=== PATIENT | male | born 1960 | race Caucasian/White ===

== ENCOUNTER 2016-07-28 14:35 | Emergency (ER) | payer BC ==
[2016-07-28 15:02] VITALS: BP 151/97
--- NOTE | 2016-07-28 15:34 | EDM.PDOC ---
ED HPI GENERAL MEDICAL PROBLEM - General Chief Complaint: Skin Complaint Stated Complaint: TICK EMBEDDED ON BACK SHOULDER BLADE Time Seen by Provider: 07/28/16 14:58 Source of Information: Reports: Patient History Limitations: Reports: No Limitations - History of Present Illness INITIAL COMMENTS - FREE TEXT/NARRATIVE: 55-year-old male presents for evaluation and treatment of a possible tick embedded into his right shoulder. Patient first noticed a lump to his right shoulder blade about 1 week ago. He states that several weeks ago he had a tick to the right shoulder which he was able to remove easily. He has not appreciated any rashes. He denies any fevers, nausea or vomiting. Patient states he has been using vaseline and Neosporin to the area. Location: Reports: Back - Related Data Allergies Allergy/AdvReac Type Severity Reaction Status Date / Time No Known Allergies Allergy Verified 07/28/16 15:02 Home Meds: Home Meds . [No Known Home Meds] 07/28/16 [History] Past Medical History - Past Health History Medical/Surgical History: Denies Medical/Surgical History Social & Family History - Family History Family Medical History: Noncontributory - Tobacco Use Smoking Status *Q: Never Smoker Second Hand Smoke Exposure: No - Caffeine Use Caffeine Use: Reports: Coffee - Recreational Drug Use Recreational Drug Use: No ED ROS GENERAL - Review of Systems Review Of Systems: See Below Constitutional: Reports: Fever GI/Abdominal: Denies: Nausea, Vomiting Skin: Reports: Lumps (right shoulder blade). Denies: Rash ED EXAM, SKIN/RASH Exam: See Below Exam Limited By: No Limitations General Appearance: Alert, WD/WN, No Apparent Distress Respiratory/Chest: No Respiratory Distress, Lungs Clear, Normal Breath Sounds Cardiovascular: Normal Peripheral Pulses, Regular Rate, Rhythm, No Murmur Back Exam: Normal Inspection. No: Paraspinal Tenderness, Vertebral Tenderness Neurological: Alert, Oriented, Normal Cognition Skin: Warm, Dry, Normal Color, Other (patient has a large either lipoma or cyst to the right posterior shoulder about 15cm in diameter; patient also has a 2cm in diameter scabbed area with small area or surrounding erythema; patient reports the area of concern is the lipoma) Location, Skin: Back Course - Vital Signs Last Recorded V/S: Last Vital Signs Temp 36.7 C 07/28/16 14:56 Pulse 74 07/28/16 14:56 Resp 18 07/28/16 14:56 BP 151/97 H 07/28/16 14:56 Pulse Ox 99 07/28/16 14:56 Departure - Departure Time of Disposition: 15:30 Disposition: Home, Self-Care 01 Condition: Good Clinical Impression: Lipoma - Discharge Information Referrals: PCP,None [Primary Care Provider] - Mike Valente MD [Physician] - Forms: ED Department Discharge Additional Instructions: Follow-up with surgery if you would like the lipoma removed. Recommend Dr. Valente. Call [phone] to schedule with him. You have either a lipoma or possibly a cyst on your back, both of these are benign and are unrelated to the tick bites. Please return to the ER should your symptoms change or worsen.
== END 2016-07-28 15:50 | disposition home or self-care (01) ==
LOC: JD.ED 14:35
DX: D17.1 Benign lipomatous neoplasm of skin and subcutaneous tissue of trunk (principal)
CPT/HCPCS: 99282; 99283

== ENCOUNTER 2018-04-29 13:09 | Emergency (ER) | payer OTHER, BC ==
[2018-04-29] MEDS ORDERED: HYDROmorphone 1 MG/ML Syringe IVPUSH ONE (13:16)
[2018-04-29] MEDS ORDERED: Ondansetron 4 MG/2 ML SDV IVPUSH ONE (13:17)
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
[2018-04-29] MEDS ORDERED: Sodium Chloride 0.9% 1,000 ML IV SCH (13:30)
--- NOTE | 2018-04-29 14:10 | CR ---
Right foot: Four views of the right foot were obtained. Comparison: No prior foot exam. Joint spaces are preserved. Incidental calcaneal spur is again noted. No acute fracture, dislocation or other bony abnormality is seen. Impression: 1. Small calcaneal spur is again noted. 2. Nothing acute is seen on right foot exam. Diagnostic code #2
--- NOTE | 2018-04-29 14:10 | CT ---
Head CT Technique: Multiple axial sections through the brain were obtained. Intravenous contrast was not utilized. Comparison: No previous intracranial imaging. Findings: Ventricles along with basal cisterns and sulci over the convexities are within normal limits for the patient's age. No abnormal parenchymal densities are seen. No evidence of intracranial hemorrhage. No midline shift or mass effect is seen. Bone window settings were reviewed which show no acute calvarial abnormality. Visualized sinuses show small rounded soft tissue densities within both maxillary sinuses compatible with incidental retention cyst. Impression: 1. Incidental sinus findings. No acute intracranial abnormality is seen. No skull fracture is identified. Diagnostic code #2
--- NOTE | 2018-04-29 14:10 | CT ---
CT cervical spine Technique: Multiple axial sections through the cervical spine were obtained from above C1 inferiorly to the bottom of T2. Reconstructed coronal and sagittal images were reviewed. Comparison: No prior cervical spine imaging. Findings: Mild scattered degenerative change is noted within the apophyseal joints. Moderate disc space narrowing is noted at C4-C5 with slight posterior osteophytes. Mild disc space narrowing is noted at C5-C6 and C6-C7. Anterior osteophytes are noted at these 3 levels. Mild bilateral neural foraminal stenosis is noted at C4-C5 on both sides. Other neural foramina are patent. No bony central canal stenosis is seen. Degenerative spurring is noted within the uncovertebral joints at C4-C5. No cervical spine fracture is seen. No abnormal subluxation is seen. Incidental air-filled cysts are noted within the inferior endplate of C6 which are degenerative in etiology. Impression: 1. Mild degenerative change as noted above. 2. Nothing acute is appreciated on CT study of the cervical spine. Diagnostic code #2
--- NOTE | 2018-04-29 14:10 | CR ---
Right ankle: Four views of the right ankle were obtained. Comparison: No prior ankle study. Small plantar spur is seen. Well-corticated calcification is noted off the medial talus compatible with old injury. Ankle mortise is symmetric. No acute fracture, dislocation or other bony abnormalities are seen. Impression: 1. Incidental findings as noted above. Nothing acute is appreciated on right ankle exam. Diagnostic code #2
[2018-04-29] MEDS ORDERED: Diphtheria,Pertussis(Acell),Tetanus Vaccine 0.5 ML Syringe IM ONE (14:24)
[2018-04-29 14:34] VITALS: BP 150/88
== END 2018-04-29 15:00 | disposition home or self-care (01) ==
LOC: JD.ED 13:09
DX: S61.411A Laceration without foreign body of right hand, initial encounter (principal); S13.9XXA Sprain of joints and ligaments of unspecified parts of neck, initial encounter; S93.411A Sprain of calcaneofibular ligament of right ankle, initial encounter; Z23 Encounter for immunization; V89.2XXA Person injured in unspecified motor-vehicle accident, traffic, initial encounter
CPT/HCPCS: 36415; 70450; 72125; 73610; 73630; 80053; 81001; 85007; 85027; 90471; 90700; 96374; 96375; 99285; J1170; J2405; J7040; 99284

== ENCOUNTER 2018-10-04 20:26 | Emergency (ER) | payer BC ==
[2018-10-04 20:56] VITALS: BP 162/81
[2018-10-04] MEDS ORDERED: predniSONE 20 MG Tab PO ONE (21:32)
--- NOTE | 2018-10-04 21:40 | EDM.PDOC ---
ED HPI GENERAL MEDICAL PROBLEM - General Chief Complaint: Bite:Animal, Insect Stated Complaint: LEFT HAND STUNG BY A HORNET Time Seen by Provider: 10/04/18 20:59 Source of Information: Reports: Patient, RN Notes Reviewed History Limitations: Reports: No Limitations - History of Present Illness INITIAL COMMENTS - FREE TEXT/NARRATIVE: Patient is a 57-year-old male who presents to the ED for evaluation of a hornet sting. Patient notes that he was stung by this hornet at a roughly 6:30 AM this morning. The patient noticed that he still had a swollen hand throughout the day, this got better in the afternoon but he develop more swelling later into the day. Patient also appreciated some more swelling up into the forearm as well. The patient is not having any pain to the area. The patient did take 2 Benadryl about a half hour before arrival to the ER, and did take some Advil earlier this morning. The patient does have visible swelling in his left hand and fingers. He notes that the hornet got him in the anatomical snuffbox area. - Related Data Allergies Allergy/AdvReac Type Severity Reaction Status Date / Time No Known Allergies Allergy Verified 04/29/18 13:23 Home Meds: Home Meds predniSONE [Deltasone] 20 mg PO ASDIRECTED #8 tablet 10/04/18 [Rx] Past Medical History - Past Health History Medical/Surgical History: Denies Medical/Surgical History HEENT History: Reports: Impaired Vision Other HEENT History: utilizes reading eyeglasses. - Infectious Disease History Infectious Disease History: Reports: Chicken Pox Social & Family History - Family History Family Medical History: Noncontributory - Tobacco Use Smoking Status *Q: Never Smoker - Caffeine Use Caffeine Use: Reports: Coffee - Recreational Drug Use Recreational Drug Use: No - Living Situation & Occupation Living situation: Reports: Single Occupation: Employed ED ROS GENERAL - Review of Systems Review Of Systems: See Below Constitutional: Denies: Fever, Chills HEENT: Denies: Throat Pain, Throat Swelling Respiratory: Denies: Shortness of Breath Cardiovascular: Denies: Chest Pain Endocrine: Reports: No Symptoms GI/Abdominal: Reports: No Symptoms : Reports: No Symptoms Musculoskeletal: Reports: No Symptoms Skin: Reports: Other (generalized swelling of left hand and wrist) Psychiatric: Reports: No Symptoms Hematologic/Lymphatic: Reports: No Symptoms Immunologic: Reports: No Symptoms ED EXAM, ANIMAL BITE - Physical Exam Exam: See Below Exam Limited By: No Limitations General Appearance: Alert, WD/WN, No Apparent Distress Eye Exam: Bilateral Eye: EOMI, Normal Inspection, PERRL Ears: Normal External Exam Nose: Normal Inspection Throat/Mouth: Normal Inspection, Normal Lips, Normal Teeth, Normal Gums, Normal Oropharynx, Normal Voice, No Airway Compromise Head: Atraumatic, Normocephalic Neck: Normal Inspection Respiratory/Chest: No Respiratory Distress, Lungs Clear, Normal Breath Sounds, No Accessory Muscle Use, Chest Non-Tender Cardiovascular: Normal Peripheral Pulses, Regular Rate, Rhythm, No Murmur Peripheral Pulses: 3+: Radial (L), Radial (R) Extremities: Normal Inspection (with exception of swollen left hand), Normal Range of Motion, Normal Capillary Refill, Joint Swelling (left wrist and into left hand). No: Redness Neurological: Alert, Oriented, Normal Cognition, No Motor/Sensory Deficits Psychiatric: Normal Affect, Normal Mood Skin Exam: Normal Color, Warm/Dry Course - Vital Signs Last Recorded V/S: Last Vital Signs Temp 97.1 F 10/04/18 20:55 Pulse 77 10/04/18 20:55 Resp 20 10/04/18 20:55 BP 162/81 H 10/04/18 20:55 Pulse Ox 97 10/04/18 20:55 - Orders/Labs/Meds Meds: Medications Discontinued Medications Generic Name Dose Route Start Last Admin Trade Name Joeq PRN Reason Stop Dose Admin Prednisone 40 mg 10/04/18 21:32 Prednisone PO 10/04/18 21:33 ONETIME ONE - Re-Assessments/Exams Free Text/Narrative Re-Assessment/Exam: 10/04/18 21:38 Patient presents to the ED for the evaluation of a hornet sting, I did order 40mg Prednisone and will place the patient on a short course of this for the swelling. Departure - Departure Time of Disposition: 21:40 Disposition: Home, Self-Care 01 Condition: Fair Clinical Impression: Wasp sting Qualifiers: Encounter type: initial encounter Injury intent: accidental or unintentional Qualified Code(s): T63.461A - Toxic effect of venom of wasps, accidental ( unintentional), initial encounter - Discharge Information *PRESCRIPTION DRUG MONITORING PROGRAM REVIEWED*: No *COPY OF PRESCRIPTION DRUG MONITORING REPORT IN PATIENT ZENAIDA: No Instructions: Bee, Wasp, or Hornet Sting, Adult Referrals: PCP,None [Primary Care Provider] - Additional Instructions: You were evaluated in the ED today for your hornet sting. This swelling will likely go down in a few days' time, please expect this to take up to 3-5 days. You were given a course of prednisone to help with the swelling. Please take as directed. This was electronically sent to the review a pharmacy located by [facility]. This pharmacy is only open from 12 to 4pm tomorrow you will need to go there to get this medication.
== END 2018-10-04 21:52 | disposition home or self-care (01) ==
LOC: JD.ED 20:26
DX: T63.461A Toxic effect of venom of wasps, accidental (unintentional), initial encounter (principal)
CPT/HCPCS: 99282; A9270; 99283

== ENCOUNTER 2023-11-21 13:27 | Emergency (ER) | payer SELFPAY ==
[2023-11-21 13:56] VITALS: BP 178/98; PULSE 57
[2023-11-21] MEDS ORDERED: Proparacaine 0.5% Ophth Soln 15 ML Bottle EYELF ONE (15:41)
[2023-11-21] MEDS ORDERED: Fluorescein 1 MG Ophth Strip EYELF ONE (15:42)
[2023-11-21] MEDS: Erythromycin Base 0.5% Ophth Oint 1 GM Tube EYEBOTH ONE (18:33)
== END 2023-11-21 18:40 | disposition home or self-care (01) ==
LOC: JD.ED 13:27
DX: S05.92XA Unspecified injury of left eye and orbit, initial encounter (principal); X58.XXXA Exposure to other specified factors, initial encounter
CPT/HCPCS: 99283; A9270; J3490

== ENCOUNTER 2025-01-24 18:15 | Emergency (ER) | payer BC ==
[2025-01-24] MEDS: Ketorolac 60 MG/2 ML SDV IM ONE (19:30)
[2025-01-24 19:35] VITALS: BP 156/97; PULSE 69
== END 2025-01-24 19:33 | disposition home or self-care (01) ==
LOC: JD.ED 18:15
DX: K04.7 Periapical abscess without sinus (principal)
CPT/HCPCS: 96372; 99282; J1885